=== PATIENT | female | born 1945 | race African-American/Black ===

== ENCOUNTER 2017-08-27 12:23 | Observation (INO) | payer OTHER ==
[2017-08-27] VITALS (10 sets, daily range): BP systolic 129–159; BP diastolic 62–88; PULSE 18–69; RESP 18; TEMP 98.2–98.6; O2SAT 95–97
[~2017-08-27] VITALS: Ht 175.3 cm; Wt 69.0 kg
[2017-08-27] MEDS ORDERED: SODIUM CHLORID 0.9% 500 ML INJ 500 ML IV ONE (13:00)
[2017-08-27] MEDS ORDERED: SODIUM CHLORIDE 0.9% FLUSH 10 ML FLUSH IVF PRN (13:00)
--- NOTE | 2017-08-27 13:07 | PD ---
HPI Chief Complaint: Syncope/Near-Syncope Time Seen by Provider: 12:47 Travel History International Travel<30 days: No Contact w/Intl Traveler<30days: No History of Present Illness HPI 71-year-old -[place] female visiting from [place], presents to the emergency department via EMS status post syncopal episode at [facility]. Patient states she was getting ready to go on a tour, and then she woke up with the ambulance there and people around. Patient denies headache, pain, or injury. She states she still feels somewhat woozy. She denies injury to the upper extremities, chest, abdomen, or lower extremities. She is currently alert and oriented 3. Her daughter is present. Patient states she takes medication for hypertension and congestive heart failure. She states she is not diabetic. No history of seizures. Patient states she was recently hospitalized in July for congestive heart failure and currently takes a diuretic. She denies shortness of breath or chest tightness currently. She states she felt well until this happened. She denies any numbness, tingling, or other focal neurological symptoms. She has no known drug allergies. PFSH Past Medical History Congestive Heart Failure: Yes Hypertension: Yes Social History Alcohol Use: Yes (socially) Tobacco Use: No Substance Use: No Allergies-Medications (Allergen,Severity, Reaction): Coded Allergies: No Known Allergies (Unverified , 08/27/17) Review of Systems Except as stated in HPI: all other systems reviewed are Neg General / Constitutional: No: Fever Eyes: No: Visual changes HENT: Positive: Lightheadedness, No: Headaches Cardiovascular: No: Chest Pain or Discomfort Respiratory: No: Shortness of Breath Gastrointestinal: No: Abdominal Pain Genitourinary: No: Dysuria Musculoskeletal: No: Pain Skin: No Rash Neurologic: No: Weakness Psychiatric: No: Depression Endocrine: No: Polydipsia Hematologic/Lymphatic: No: Easy Bruising Physical Exam Narrative GENERAL: Patient appears somewhat lethargic, but otherwise is alert and oriented 3 and in no obvious distress per SKIN: Warm and dry. Somewhat increased pallor. No diaphoresis. Normal turgor. HEAD: Atraumatic. Normocephalic. Nontender. EYES: Pupils equal and round. No scleral icterus. No injection or drainage. Ocular motions are equal bilaterally. ENT: No nasal bleeding or discharge. Mucous membranes pink and moist. Pharynx is clear. Airways patent NECK: Trachea midline. Supple and nontender. No JVD. CARDIOVASCULAR: Bradycardic rate and regular rhythm. RESPIRATORY: No accessory muscle use. Clear to auscultation. Breath sounds equal bilaterally. GASTROINTESTINAL: Abdomen soft, non-tender, nondistended. Hepatic and splenic margins not palpable. MUSCULOSKELETAL: Extremities without clubbing, cyanosis, or edema. No obvious deformities. NEUROLOGICAL: Awake and alert. No obvious cranial nerve deficits. Motor grossly within normal limits. Five out of 5 muscle strength in the arms and legs. Normal speech. PSYCHIATRIC: Appropriate mood and affect; insight and judgment normal. Data Data Last Documented VS Vital Signs Date Time Temp Pulse Resp B/P (MAP) Pulse Ox O2 Delivery O2 Flow Rate FiO2 08/27/17 14:25 69 157/69 (98) 74 147/62 (90) 08/27/17 12:47 97 08/27/17 12:47 18 Room Air 08/27/17 12:44 98.5 Orders Orders Electrocardiogram (08/27/17 12:52) Complete Blood Count With Diff (08/27/17 12:52) Comprehensive Metabolic Panel (08/27/17 12:52) Magnesium (Mg) (08/27/17 12:52) Ckmb (Isoenzyme) Profile (08/27/17 12:52) Troponin I (08/27/17 12:52) Act Partial Throm Time (Ptt) (08/27/17 12:52) Prothrombin Time / Inr (Pt) (08/27/17 12:52) Urinalysis - C+S If Indicated (08/27/17 12:52) Chest, Single Ap (08/27/17 12:52) Ecg Monitoring (08/27/17 12:52) Iv Access Insert/Monitor (08/27/17 12:52) Oximetry (08/27/17 12:52) Sodium Chloride 0.9% Flush (Ns Flush) (08/27/17 13:00) Sodium Chlorid 0.9% 500 Ml Inj (Ns 500 M (08/27/17 13:00) B-Type Natriuretic Peptide (08/27/17 12:52) Ct Brain W/O Iv Contrast(Rout) (08/27/17 12:52) CKMB (08/27/17 12:50) CKMB% (08/27/17 12:50) Magnesium Sulfate 1 Gm Premix (Magnesium (08/27/17 14:30) Type And Screen (08/27/17 15:08) Red Blood Cells (Rbc) (08/27/17 15:08) Blood Product Administration (08/27/17 15:08) Sodium Chlor 0.9% 250 Ml Inj (Ns 250 Ml (08/27/17 15:15) Labs Laboratory Tests Test 08/27/17 12:50 08/27/17 15:30 White Blood Count 7.4 TH/MM3 Red Blood Count 3.58 MIL/MM3 Hemoglobin 7.9 GM/DL Hematocrit 25.7 % Mean Corpuscular Volume 71.8 FL Mean Corpuscular Hemoglobin 22.2 PG Mean Corpuscular Hemoglobin Concent 30.9 % Red Cell Distribution Width 20.4 % Platelet Count 205 TH/MM3 Mean Platelet Volume 9.9 FL Neutrophils (%) (Auto) 71.2 % Lymphocytes (%) (Auto) 19.1 % Monocytes (%) (Auto) 6.6 % Eosinophils (%) (Auto) 2.5 % Basophils (%) (Auto) 0.6 % Neutrophils # (Auto) 5.3 TH/MM3 Lymphocytes # (Auto) 1.4 TH/MM3 Monocytes # (Auto) 0.5 TH/MM3 Eosinophils # (Auto) 0.2 TH/MM3 Basophils # (Auto) 0.0 TH/MM3 CBC Comment DIFF FINAL Differential Comment Prothrombin Time 10.6 SEC Prothromb Time International Ratio 1.0 RATIO Activated Partial Thromboplast Time 21.6 SEC Blood Urea Nitrogen 40 MG/DL Creatinine 1.52 MG/DL Random Glucose 123 MG/DL Total Protein 7.4 GM/DL Albumin 3.1 GM/DL Calcium Level 8.7 MG/DL Magnesium Level 1.4 MG/DL Alkaline Phosphatase 110 U/L Aspartate Amino Transf (AST/SGOT) 14 U/L Alanine Aminotransferase (ALT/SGPT) 10 U/L Total Bilirubin 0.3 MG/DL Sodium Level 143 MEQ/L Potassium Level 4.0 MEQ/L Chloride Level 114 MEQ/L Carbon Dioxide Level 19.3 MEQ/L Anion Gap 10 MEQ/L Estimat Glomerular Filtration Rate 41 ML/MIN Total Creatine Kinase 131 U/L Creatine Kinase MB 1.2 NG/ML Troponin I LESS THAN 0.02 NG/ML B-Type Natriuretic Peptide 97 PG/ML [facility] Medical Decision Making Medical Screen Exam Complete: Yes Emergency Medical Condition: Yes Differential Diagnosis Syncopal episode. History CHF. History of anemia. Intracranial bleed. CVA. Electrolyte imbalance. Cardiac syndrome. Narrative Course Patient is medically stable at time of exam Labs ordered including CBC, CMP, cardiac panel, coagulation studies, proBNP. EKG is performed showing sinus rhythm at 60 bpm. Chest x-ray is ordered. Orthostatics are ordered. Patient is not orthostatic. Patient is given 500 mL of normal saline bolus. CBC showed anemia with a hemoglobin of 7.9, hematocrit is 25.7, MCV 71.8, MCH 22.2, platelet count is normal at 205 Coagulation studies are normal with an INR 1.0. APTT is 21.6 PT is 10.6 Chemistries remarkable for chloride of 114, carbon dioxide is 19.3, BUN is 40, creatinine is 1.52, T4 is 41, glucose is 123, magnesium is 1.4 first troponin is less than 0.02. BNP is 97 Rectal guaiac shows positive. Patient discussed with Dr. Isaac who recommends admitting the patient for further evaluation and 1 unit of blood. Type and screen and 1 unit of blood ordered for administration. Calls placed to hospitalist for admission. Diagnosis Primary Impression: Syncope and collapse Additional Impressions: Symptomatic anemia Stool guaiac positive Admitting Information Admitting Physician Requests: Observation Condition: Stable Ayden Kramer Aug 27, 2017 13:07
[2017-08-27 13:19] LABS: AUTOMATED NEUTROPHIL # 5.3 TH/MM3 (1.8-7.7); BASOPHIL % 0.6 % (0.0-2.0); EOSINOPHIL # 0.2 TH/MM3 (0-0.4); EOSINOPHIL % 2.5 % (0.0-4.0); HEMATOCRIT 25.7 % (35.0-46.0); HEMOGLOBIN 7.9 GM/DL (11.6-15.3); LYMPH % 19.1 % (9.0-44.0); LYMPHOCYTE # 1.4 TH/MM3 (1.0-4.8); MEAN CELL VOLUME 71.8 FL (80.0-100.0); MEAN CORPUSCULAR HEMOGLOBIN 22.2 PG (27.0-34.0); MEAN CORPUSCULAR HGB CONC 30.9 % (32.0-36.0); MEAN PLATELET VOLUME 9.9 FL (7.0-11.0); MONO % 6.6 % (0.0-8.0); MONOCYTE # 0.5 TH/MM3 (0-0.9); NEUT % 71.2 % (16.0-70.0); PLATELET COUNT 205 TH/MM3 (150-450); RED BLOOD COUNT 3.58 MIL/MM3 (4.00-5.30); RED CELL DISTRIBUTION WIDTH 20.4 % (11.6-17.2); WHITE BLOOD COUNT 7.4 TH/MM3 (4.0-11.0)
--- NOTE | 2017-08-27 13:29 | RADRPT ---
EXAM DATE: 08/27/2017 1:23 PM EDT AGE/SEX: 71 years / Female INDICATIONS: Fainting. CLINICAL DATA: This is the patient's initial encounter. Patient reports that signs and symptoms have been present for 1 day and indicates a pain score of 0/10. MEDICAL/SURGICAL HISTORY: None. None. COMPARISON: No prior exams available for comparison. FINDINGS: A single AP view of the chest demonstrates the lungs to be symmetrically aerated without evidence of mass, infiltrate or effusion. Mild cardiomegaly. The cardiomediastinal contours are unremarkable. O sseous structures are intact. CONCLUSION: No acute cardiopulmonary disease Electronically signed by: Ruperto Brand MD 08/27/2017 1:28 PM EDT
[2017-08-27 13:33] LABS: PROTHROMBIN TIME - PATIENT 10.6 SEC (9.8-11.6)
[2017-08-27 13:36] LABS: ALBUMIN 3.1 GM/DL (3.4-5.0); ALT (GPT) 10 U/L (10-53); AST (GOT) 14 U/L (15-37); BICARBONATE 19.3 MEQ/L (21.0-32.0); BLOOD UREA NITROGEN 40 MG/DL (7-18); CALCIUM 8.7 MG/DL (8.5-10.1); CHLORIDE 114 MEQ/L (98-107); CREATININE 1.52 MG/DL (0.50-1.00); GLOMERULAR FILTRATION RATE 41 ML/MIN (>89); GLUCOSE,RANDOM 123 MG/DL (74-106); MAGNESIUM 1.4 MG/DL (1.5-2.5); SODIUM (NA) 143 MEQ/L (136-145)
[2017-08-27 13:40] LABS: ALKALINE PHOSPHATASE 110 U/L (45-117); TOTAL BILIRUBIN ADULT 0.3 MG/DL (0.2-1.0); TOTAL PROTEIN 7.4 GM/DL (6.4-8.2); TROPONIN I LESS THAN 0.02 NG/ML (0.02-0.05)
--- NOTE | 2017-08-27 14:16 | RADRPT ---
EXAM DATE: 08/27/2017 2:08 PM EDT AGE/SEX: 71 years / Female INDICATIONS: Syncope today. CLINICAL DATA: This is the patient's initial encounter. Patient reports that signs and symptoms have been present for 1 day and indicates a pain score of 0/10. MEDICAL/SURGICAL HISTORY: Hypertension. Congestive heart failure. None. RADIATION DOSE: 56.35 CTDI (mGy) COMPARISON: No prior exams available for comparison. TECHNIQUE: CT of the head without contrast. Using automated exposure control and adjustment of the mA and/or kV according to patient size, radiation dose was kept as low as reasonably achievable to ob tain optimal diagnostic quality images. DICOM format image data is available electronically for revi ew and comparison. FINDINGS: Cerebrum: The ventricles are normal for age. 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 No evidence of midline shift, mass lesion, hemorrhage or acute infarction. No extraaxial fluid collections are seen . Posterior Fossa: The cerebellum and brainstem are intact. The 4th ventricle is midline. The cerebe llopontine angle is unremarkable. Extracranial: The visualized portion of the orbits is intact. Skull: The calvaria is intact. No evidence of skull fracture. CONCLUSION: 1. No acute intracranial abnormality. 2. Remote right-sided infarcts. Electronically signed by: Ruperto Brand MD 08/27/2017 2:14 PM EDT
[2017-08-27] MEDS ORDERED: MAGNESIUM SULFATE 1 GM PREMIX 100 ML IV ONE (14:30)
[2017-08-27] MEDS ORDERED: SODIUM CHLOR 0.9% 250 ML INJ 250 ML IV ONE (15:15)
[2017-08-27] MEDS ORDERED: BISACODYL 10 MG SUPP RECTAL PRN (16:15)
[2017-08-27] MEDS ORDERED: LACTULOSE SYRUP 20 GM/30 ML CUP PO PRN (16:15)
[2017-08-27] MEDS ORDERED: NITROGLYCERIN 0.4 MG SL 25 TABS/BTL SL PRN (16:15)
[2017-08-27] MEDS ORDERED: SODIUM CHLORIDE 0.9% FLUSH 10 ML FLUSH IV FLUSH PRN (16:15)
[2017-08-27] MEDS ORDERED: ACETAMINOPHEN 325 MG TAB PO PRN ×2 (16:15)
[2017-08-27] MEDS ORDERED: NALOXONE HCL 0.4 MG/ML AMP IV PUSH PRN (16:15)
[2017-08-27] MEDS ORDERED: ONDANSETRON HCL 4 MG/2 ML VIAL IVP PRN (16:15)
[2017-08-27] MEDS ORDERED: SENNOSIDES 8.6 MG TAB PO PRN (16:15)
[2017-08-27 16:30] LABS: AMORPHOUS SEDIMENT, URINE MOD; BACTERIA, URINE FEW /hpf; BILIRUBIN, URINE NEG (NEG); BLOOD, URINE SMALL (NEG); GLUCOSE,URINE NEG (NEG); HYALINE CAST, URINE 3 /lpf (RARE); KETONE, URINE NEG (NEG); MUCUS URINE FEW /lpf (OCC); NITRITE,URINE NEG (NEG); SQUAMOUS EPITHELIAL CELL URINE 7 /hpf (0-5); URINE COLOR YELLOW (YELLW/STRAW); URINE LEUKOCYTE ESTERASE LARGE (NEG)
[2017-08-27] MEDS ORDERED: SODIUM CHLOR 0.9% 1000 ML INJ 1,000 ML IV SCH (17:45)
--- NOTE | 2017-08-27 17:47 | HHI.HP ---
HPI Service [facility] Primary Care Physician Unknown Admission Diagnosis Syncope/Symptomatic anemia Diagnoses: Chief Complaint: Syncope Travel History International Travel<30 Days: No Contact w/Intl Traveler <30 Da: No History of Present Illness This is a 71-year-old female who presented to the emergency room by EMS status post syncope. Patient visiting from [place]. She was at [facility] when she felt dizzy and passed out for a short period of time. She was oriented after the episode which was witnessed by her daughter. No seizure activity. Patient denies fever, chills, nausea, vomiting, chest pain, shortness of breath, UTI symptoms and diarrhea. She is not on any new medicine except when she was hospitalized in July for heart failure. She takes 5 different medications which she cannot recall. In the emergency department, she was found to have hemoglobin of 7.9 and guaiac positive stools. She has history of anemia unknown baseline hemoglobin, peptic ulcer disease and hemorrhoids with intermittent rectal bleeding last episode 3 weeks ago. She never had an endoscopy and refuses to undergo at this time. No NSAIDs or aspirin use. She also has acute kidney injury with acidosis and received 500 cc NS in the emergency department. Denies kidney disease. All other systems reviewed negative Review of Systems Except as stated in HPI: all other systems reviewed are Neg Past Family Social History Past Medical History As previously mentioned. Hypertension Past Surgical History Cervical cancer status post surgery and radiation therapy. Small bowel obstruction with gangrene status post surgery Reported Medications Agent unable to recall. RN to verify Allergies: Coded Allergies: No Known Allergies (Unverified , 08/27/17) Family History Denies CVA Social History Occasional alcohol use. Does not smoke Physical Exam Vital Signs Vital Signs Date Time Temp Pulse Resp B/P (MAP) Pulse Ox O2 Delivery O2 Flow Rate FiO2 08/27/17 17:23 142/62 (88) 96 08/27/17 14:25 69 157/69 (98) 74 147/62 (90) 08/27/17 14:24 69 157/69 (98) 08/27/17 12:47 97 08/27/17 12:47 60 18 129/63 (85) 97 Room Air 08/27/17 12:44 98.5 61 18 129/63 (85) Physical Exam GENERAL: This is a well-nourished, well-developed patient, in no apparent distress. Looks dehydrated SKIN: No rashes, ecchymoses or lesions. Cool and dry. HEAD: Atraumatic. Normocephalic. No temporal or scalp tenderness. EYES: Pupils equal round and reactive. Extraocular motions intact. No scleral icterus. No injection or drainage. ENT: Nose without bleeding, purulent drainage or septal hematoma. Throat without erythema, tonsillar hypertrophy or exudate. Uvula midline. Airway patent. NECK: Trachea midline. No JVD or lymphadenopathy. Supple, nontender, no meningeal signs. CARDIOVASCULAR: Regular rate and rhythm without murmurs, gallops, or rubs. RESPIRATORY: Clear to auscultation. Breath sounds equal bilaterally. No wheezes , rales, or rhonchi. GASTROINTESTINAL: Abdomen soft, non-tender, nondistended. No guarding. MUSCULOSKELETAL: Extremities without clubbing, cyanosis, or edema. No joint tenderness, effusion, or edema noted. No calf tenderness. Negative Homans sign bilaterally. NEUROLOGICAL: Awake and alert. Cranial nerves II through XII intact. Motor and sensory grossly within normal limits. Five out of 5 muscle strength in all muscle groups. Normal speech. Laboratory Laboratory Tests Test 08/27/17 12:50 08/27/17 15:30 White Blood Count 7.4 Red Blood Count 3.58 Hemoglobin 7.9 Hematocrit 25.7 Mean Corpuscular Volume 71.8 Mean Corpuscular Hemoglobin 22.2 Mean Corpuscular Hemoglobin Concent 30.9 Red Cell Distribution Width 20.4 Platelet Count 205 Mean Platelet Volume 9.9 Neutrophils (%) (Auto) 71.2 Lymphocytes (%) (Auto) 19.1 Monocytes (%) (Auto) 6.6 Eosinophils (%) (Auto) 2.5 Basophils (%) (Auto) 0.6 Neutrophils # (Auto) 5.3 Lymphocytes # (Auto) 1.4 Monocytes # (Auto) 0.5 Eosinophils # (Auto) 0.2 Basophils # (Auto) 0.0 CBC Comment DIFF FINAL Differential Comment Prothrombin Time 10.6 Prothromb Time International Ratio 1.0 Activated Partial Thromboplast Time 21.6 Blood Urea Nitrogen 40 Creatinine 1.52 Random Glucose 123 Total Protein 7.4 Albumin 3.1 Calcium Level 8.7 Magnesium Level 1.4 Alkaline Phosphatase 110 Aspartate Amino Transf (AST/SGOT) 14 Alanine Aminotransferase (ALT/SGPT) 10 Total Bilirubin 0.3 Sodium Level 143 Potassium Level 4.0 Chloride Level 114 Carbon Dioxide Level 19.3 Anion Gap 10 Estimat Glomerular Filtration Rate 41 Total Creatine Kinase 131 Creatine Kinase MB 1.2 Troponin I LESS THAN 0.02 B-Type Natriuretic Peptide 97 Urine Color YELLOW Urine Turbidity CLOUDY Urine pH 5.0 Urine Specific [place] 1.008 Urine Protein NEG Urine Glucose (UA) NEG Urine Ketones NEG Urine Occult Blood SMALL Urine Nitrite NEG Urine Bilirubin NEG Urine Urobilinogen LESS THAN 2 Urine Leukocyte Esterase LARGE Urine RBC 2 Urine WBC 8 Urine Squamous Epithelial Cells 7 Urine Amorphous Sediment MOD Urine Bacteria FEW Urine Hyaline Casts 3 Urine Mucus FEW Microscopic Urinalysis Comment CULT NOT INDICATED Result Diagram: 08/27/17 1250 08/27/17 1250 Caprini VTE Risk Assessment Caprini VTE Risk Assessment: Mod/High Risk (score >= 2) Caprini Risk Assessment Model Point Value = 1 Point Value = 2 Point Value = 3 Point Value = 5 Age 41-60 Minor surgery BMI > 25 kg/m2 Swollen legs Varicose veins or History of unexplained or recurrent spontaneous Oral contraceptives or hormone replacement Sepsis (< 1 month) Serious lung disease, including pneumonia (< 1 month) Abnormal pulmonary function Acute myocardial infarction Congestive heart failure (< 1 month) History of inflammatory bowel disease Medical patient at bed rest Age 61-74 Arthroscopic surgery Major open surgery (> 45 min) Laparoscopic surgery (> 45 min) Malignancy Confined to bed (> 72 hours) Immobilizing plaster cast Central venous access Age >= 75 History of VTE Family history of VTE Factor V Leiden Prothrombin [id number] Lupus anticoagulant Anticardiolipin antibodies Elevated serum homocysteine Heparin-induced thrombocytopenia Other congenital or acquired thrombophilia Stroke (< 1 month) Elective arthroplasty Hip, pelvis, or leg fracture Acute spinal cord injury (< 1 month) Prophylaxis Regimen Total Risk Factor Score Risk Level Prophylaxis Regimen 0-1 Low Early ambulation 2 Moderate Order ONE of the following: *Sequential Compression Device (SCD) *Heparin 5000 units SQ BID 3-4 Higher Order ONE of the following medications: *Heparin 5000 units SQ TID *Enoxaparin/Lovenox 40 mg SQ daily (WT < 150 kg, CrCl > 30 mL/min) *Enoxaparin/Lovenox 30 mg SQ daily (WT < 150 kg, CrCl > 10-29 mL/min) *Enoxaparin/Lovenox 30 mg SQ BID (WT < 150 kg, CrCl > 30 mL/min) AND/OR *Sequential Compression Device (SCD) 5 or more Highest Order ONE of the following medications: *Heparin 5000 units SQ TID (Preferred with Epidurals) *Enoxaparin/Lovenox 40 mg SQ daily (WT < 150 kg, CrCl > 30 mL/min) *Enoxaparin/Lovenox 30 mg SQ daily (WT < 150 kg, CrCl > 10-29 mL/min) *Enoxaparin/Lovenox 30 mg SQ BID (WT < 150 kg, CrCl > 30 mL/min) AND *Sequential Compression Device (SCD) Assessment and Plan Assessment and Plan This is a 71-year-old female who presented to the emergency room by EMS status post syncope. Patient visiting from [place]. She was [place] [employer] when she felt dizzy and passed out for a short period of time. She was oriented after the episode which was witnessed by her daughter. No seizure activity. Patient denies fever, chills, nausea, vomiting, chest pain, shortness of breath, UTI symptoms and diarrhea. She is not on any new medicine except when she was hospitalized in July for heart failure. She takes 5 different medications which he cannot recall. In the emergency department, she was found to have hemoglobin of 7.9 and guaiac positive stools. Syncope. She is nonfocal. Head CT without acute cardiopulmonary disease. Initial cardiac enzymes unremarkable. EKG tracing interpreted by me with sinus rhythm with no ST elevation. Neurochecks. Acute kidney injury with acidosis likely secondary to dehydration. Denies NSAID use. Received 500 cc NS. Gentle IV hydration for 1 L. Avoid nephrotoxins. Obtain records from PCP Hypomagnesemia. Patient received 1 g IV magnesium. Repeat in the morning Symptomatic anemia secondary to blood loss. History of anemia unknown baseline hemoglobin. She is guaiac positive. History of ulcers and hemorrhoids. No NSAID or aspirin use. Patient agrees to packed RBC transfusion. Repeat CBC in the morning. Patient refusing to undergo endoscopy will cancel GI consult. Start PPI. As previously mentioned obtain records from PCP Multiple medical conditions of hypertension and heart failure. She is compensated at this time. CHF education, I/O and monitor weight. Continue outpatient medications as appropriate when confirmed. RN to verify home meds DVT prophylaxis with SCD and early ambulation. No pharmacological prophylaxis secondary to guaiac positive stool Discussed Condition With Patient Obinna Chavis MD Aug 27, 2017 17:47
[2017-08-27] MEDS ORDERED: ATOR40TA16 PO (17:50)
[2017-08-27] MEDS ORDERED: CARV3.12 PO (17:50)
[2017-08-27] MEDS ORDERED: FURO40TA PO (17:50)
[2017-08-27] MEDS ORDERED: LISI10TA3 PO (17:50)
[2017-08-27] MEDS ORDERED: KLOR10TA PO (17:50)
[2017-08-27] MEDS ORDERED: ISOS30TA3 PO (17:50)
[2017-08-27] MEDS ORDERED: LOSA100T2 PO (17:51)
[2017-08-27] MEDS ORDERED: AMLO10TA2 PO (17:51)
[2017-08-27] MEDS: PANTOPRAZOLE SOD 40 MG DELAYED RELEASE TAB PO SCH (18:31)
[2017-08-27] MEDS: SODIUM CHLORIDE 0.9% FLUSH 10 ML FLUSH IV FLUSH SCH (21:00)
[2017-08-27] MEDS ORDERED: ATORVASTATIN 40 MG TAB PO SCH (21:00)
[2017-08-27 21:11] LABS: TROPONIN I LESS THAN 0.02 NG/ML (0.02-0.05)
[2017-08-27] MEDS: CARVEDILOL 3.125 MG TAB PO SCH (22:35)
[2017-08-27] MEDS: DOCUSATE SODIUM 50 MG/SENNA 8.6 MG TAB PO SCH (22:35)
[2017-08-28 00:03] VITALS: BP 158/78; RESP 18; TEMP 98.6; O2SAT 98
[2017-08-28 01:11] VITALS: BP 156/68; PULSE 66; RESP 18; TEMP 98.2; O2SAT 96
[2017-08-28 01:51] LABS: AUTOMATED NEUTROPHIL # 6.9 TH/MM3 (1.8-7.7); BASOPHIL % 0.2 % (0.0-2.0); EOSINOPHIL # 0.2 TH/MM3 (0-0.4); EOSINOPHIL % 2.2 % (0.0-4.0); HEMATOCRIT 26.2 % (35.0-46.0); HEMOGLOBIN 8.4 GM/DL (11.6-15.3); LYMPHOCYTE # 1.9 TH/MM3 (1.0-4.8); MEAN CELL VOLUME 72.2 FL (80.0-100.0); MEAN CORPUSCULAR HGB CONC 31.8 % (32.0-36.0); MEAN PLATELET VOLUME 9.5 FL (7.0-11.0); MONO % 8.4 % (0.0-8.0); MONOCYTE # 0.8 TH/MM3 (0-0.9); NEUT % 70.2 % (16.0-70.0); PLATELET COUNT 187 TH/MM3 (150-450); RED BLOOD COUNT 3.64 MIL/MM3 (4.00-5.30); RED CELL DISTRIBUTION WIDTH 21.5 % (11.6-17.2); WHITE BLOOD COUNT 9.9 TH/MM3 (4.0-11.0)
[2017-08-28 02:08] LABS: BICARBONATE 23.2 MEQ/L (21.0-32.0); CALCIUM 8.4 MG/DL (8.5-10.1); CREATININE 1.44 MG/DL (0.50-1.00)
[2017-08-28 02:11] LABS: TROPONIN I LESS THAN 0.02 NG/ML (0.02-0.05)
[2017-08-28 03:26] VITALS: BP 155/69; PULSE 63; RESP 18; TEMP 98.1; O2SAT 96
[2017-08-28 07:55] VITALS: PULSE 58
[2017-08-28 08:05] VITALS: BP 147/65; PULSE 62; RESP 16; TEMP 97.6; O2SAT 96
[2017-08-28] MEDS ORDERED: LISINOPRIL 10 MG TAB PO SCH (09:00)
[2017-08-28] MEDS ORDERED: POTASSIUM CHLORIDE 10 MEQ CONTROLLED RELEASE TAB PO SCH (09:00)
[2017-08-28] MEDS ORDERED: FUROSEMIDE 40 MG TAB PO SCH (09:00)
[2017-08-28] MEDS: DOCUSATE SODIUM 50 MG/SENNA 8.6 MG TAB PO SCH (09:00)
--- NOTE | 2017-08-28 09:25 | PD.CONS ---
HPI History of Present Illness This is a 72 year old female was admitted to the hospital on 08/27/2017 for lightheadedness and dizzy sensations with syncopal episode. According to the patient and the records she was here with a friend for her birthday and had gone to the [employer]. She states she has never had an episode like this before. Currently patient denies any nausea or vomiting no dyspepsia or dysphasia. Patient does note new onset of diarrhea loose brown stools for the past 3 or 4 months. Patient denies seeing any blood but has not had any type of evaluation for this diarrhea. She does state that the stools are daily and has had a history of cervical cancer in 1983 with complications of a small bowel obstruction postop surgery. Patient denies any diarrhea or any changes in the color of her stool. She denies any obvious hematemesis or melena and no abdominal pain. She states that she did have a history of gastric ulcers a long time ago. Patient denies any family history of colon cancer and states that she has never had an EGD or colonoscopy. Patient does admit to weekly alcohol usage; bilirubin and LFTs are within normal range. Hemoglobin on admission 7.9 and is currently 8.4 after receiving 2 units of packed RBCs blood transfusion. Patient has normal platelet count at 187. Gastroenterology was called to consult for her symptomatic anemia and positive Hemoccult. Patient now states that she is supposed to check out of her hotel today some time and that she is from the [place] area and plans to return to [place] and follow-up with her physicians there. We discussed the possibility of EGD colonoscopy but currently she is refusing. (Eufemia Shah) [facility] Past Medical History As previously mentioned. Hypertension History of gastric ulcers Past Surgical History Cervical cancer status post surgery and radiation therapy. Small bowel obstruction with gangrene status post surgery No EGD or colonoscopy ever done (Eufemia Shah) Coded Allergies: No Known Allergies (Unverified , 08/27/17) Medications Administered Medications Medications (Trade) Dose Ordered Sig/Swathi Route PRN Reason Start Time Stop Time Status Last Admin Dose Admin Senna/Docusate Sodium (Diana-Colace) 1 tab BID PO 08/27/17 21:00 08/27/17 22:35 Sodium Chloride 1,000 ml @ 42 mls/hr [id number] IV 08/27/17 17:45 08/28/17 17:33 08/27/17 18:31 Pantoprazole Sodium (Protonix) 40 mg DAILY PO 08/27/17 18:00 08/27/17 18:31 Atorvastatin Calcium (Lipitor) 40 mg HS PO 08/27/17 21:00 08/27/17 22:35 Carvedilol (Coreg) 3.125 mg BID PO 08/27/17 21:00 08/27/17 22:35 Family History Denies CVA no family history of colon cancer Social History Occasional weekly alcohol use. Does not smoke (Eufemia Shah) Review of Systems Constitutional: COMPLAINS OF: Dizziness Ears, nose, mouth, throat: COMPLAINS OF: Vertigo Gastrointestinal: COMPLAINS OF: Diarrhea (Eufemia Shah) GI Exam Vitals I&O Vital Signs Date Time Temp Pulse Resp B/P (MAP) Pulse Ox O2 Delivery O2 Flow Rate FiO2 08/28/17 08:05 97.6 62 16 147/65 (92) 96 08/28/17 03:26 98.1 63 18 155/69 (97) 96 08/28/17 01:11 98.2 66 18 156/68 (97) 96 08/28/17 00:03 98.6 18 158/78 98 08/27/17 23:23 98.2 65 18 159/67 (97) 95 08/27/17 22:01 98.4 69 18 154/86 (108) 96 08/27/17 21:48 98.6 18 18 156/88 95 08/27/17 21:39 98.2 18 18 159/76 95 08/27/17 20:02 96 08/27/17 17:23 142/62 (88) 96 08/27/17 14:25 69 157/69 (98) 74 147/62 (90) 08/27/17 14:24 69 157/69 (98) 08/27/17 12:47 97 08/27/17 12:47 60 18 129/63 (85) 97 Room Air 08/27/17 12:44 98.5 61 18 129/63 (85) I/O 08/27/17 08/27/17 08/27/17 08/28/1718 6/24/18 07:00 15:00 23:00 07:00 15:00 23:00 Intake Total 600 ml 400 ml Balance 600 ml 400 ml Intake Oral 200 ml Packed Cells 400 ml Blood Product IV Normal Saline Flush 400 ml Imaging Last Impressions Head CT 08/27/17 1252 Signed Impressions: CONCLUSION: 1. No acute intracranial abnormality. 2. Remote right-sided infarcts. Chest X-Ray 08/27/17 1252 Signed Impressions: CONCLUSION: No acute cardiopulmonary disease Laboratory Test 08/27/17 12:50 08/27/17 15:30 08/27/17 20:11 08/28/17 01:36 White Blood Count 7.4 TH/MM3 9.9 TH/MM3 Red Blood Count 3.58 MIL/MM3 3.64 MIL/MM3 Hemoglobin 7.9 GM/DL 8.4 GM/DL Hematocrit 25.7 % 26.2 % Mean Corpuscular Volume 71.8 FL 72.2 FL Mean Corpuscular Hemoglobin 22.2 PG 23.0 PG Mean Corpuscular Hemoglobin Concent 30.9 % 31.8 % Red Cell Distribution Width 20.4 % 21.5 % Platelet Count 205 TH/MM3 187 TH/MM3 Mean Platelet Volume 9.9 FL 9.5 FL Neutrophils (%) (Auto) 71.2 % 70.2 % Lymphocytes (%) (Auto) 19.1 % 19.0 % Monocytes (%) (Auto) 6.6 % 8.4 % Eosinophils (%) (Auto) 2.5 % 2.2 % Basophils (%) (Auto) 0.6 % 0.2 % Neutrophils # (Auto) 5.3 TH/MM3 6.9 TH/MM3 Lymphocytes # (Auto) 1.4 TH/MM3 1.9 TH/MM3 Monocytes # (Auto) 0.5 TH/MM3 0.8 TH/MM3 Eosinophils # (Auto) 0.2 TH/MM3 0.2 TH/MM3 Basophils # (Auto) 0.0 TH/MM3 0.0 TH/MM3 CBC Comment DIFF FINAL DIFF FINAL Differential Comment Prothrombin Time 10.6 SEC Prothromb Time International Ratio 1.0 RATIO Activated Partial Thromboplast Time 21.6 SEC Blood Urea Nitrogen 40 MG/DL 41 MG/DL Creatinine 1.52 MG/DL 1.44 MG/DL Random Glucose 123 MG/DL 99 MG/DL Total Protein 7.4 GM/DL Albumin 3.1 GM/DL Calcium Level 8.7 MG/DL 8.4 MG/DL Magnesium Level 1.4 MG/DL Alkaline Phosphatase 110 U/L Aspartate Amino Transf (AST/SGOT) 14 U/L Alanine Aminotransferase (ALT/SGPT) 10 U/L Total Bilirubin 0.3 MG/DL Sodium Level 143 MEQ/L 145 MEQ/L Potassium Level 4.0 MEQ/L 3.8 MEQ/L Chloride Level 114 MEQ/L 114 MEQ/L Carbon Dioxide Level 19.3 MEQ/L 23.2 MEQ/L Anion Gap 10 MEQ/L 8 MEQ/L Estimat Glomerular Filtration Rate 41 ML/MIN 43 ML/MIN Total Creatine Kinase 131 U/L 113 U/L 111 U/L Creatine Kinase MB 1.2 NG/ML Troponin I LESS THAN 0.02 NG/ML LESS THAN 0.02 NG/ML LESS THAN 0.02 NG/ML B-Type Natriuretic Peptide 97 PG/ML Urine Color YELLOW Urine Turbidity CLOUDY Urine pH 5.0 Urine Specific [place] 1.008 Urine Protein NEG mg/dL Urine Glucose (UA) NEG mg/dL Urine Ketones NEG mg/dL Urine Occult Blood SMALL Urine Nitrite NEG Urine Bilirubin NEG Urine Urobilinogen LESS THAN 2 mg/dL Urine Leukocyte Esterase LARGE Urine RBC 2 /hpf Urine WBC 8 /hpf Urine Squamous Epithelial Cells 7 /hpf Urine Amorphous Sediment MOD Urine Bacteria FEW /hpf Urine Hyaline Casts 3 /lpf Urine Mucus FEW /lpf Microscopic Urinalysis Comment CULT NOT INDICATED Physical Examination HEENT: normocephalic; atraumatic; no obvious jaundice. NECK: Neck is supple CHEST: Chest is clear to auscultation and percussion. CARDIAC: Regular rate and rhythm, audible systolic murmur left sternal border ABDOMEN: Soft, nondistended, nontender; no hepatosplenomegaly; bowel sounds are present in all four quadrants. EXTREMITIES: No clubbing, cyanosis, or edema. SKIN: Pale mucous membranes SUPERVISOR TAN ROOM: Fair to good historian, answer simple questions (Eufemia Shah) Assessment and Plan Assessment: (1) Symptomatic anemia ICD Codes: D64.9 - Anemia, unspecified Status: Acute (2) Stool guaiac positive ICD Codes: R19.5 - Other fecal abnormalities Status: Acute (3) Syncope and collapse ICD Codes: R55 - Syncope and collapse Status: Acute Plan Symptomatic anemia, patient denies any previous symptoms except for the evening of 08/27/2017 when she had lightheadedness and dizziness and a syncopal episode at the [employer]. Patient received 2 units packed RBCs and is now feeling much better. She does have pale mucous membranes currently denies any nausea or vomiting no dyspepsia or dysphasia. Diarrhea, onset approximately 3-4 months ago. Denies any obvious blood or melena states her stools are brown, daily loose stools anywhere from 2-4. Patient has never had EGD or colonoscopy, and is currently refusing to health when this hospital admission. She is from [place] and states that she will go back to [place] and follow-up with her regular physicians who she already has appointments with. Current hemoglobin 8.4. History of small bowel obstruction status post cervical cancer surgery and radiation therapy 1983. History of gastric ulcers a long time ago unknown date, but denies any current symptoms. No family history of colon cancer Weekly EtOH usage, denies any abdominal pain Plan Diet per attending Consider EGD and colonoscopy, currently patient is refusing and states she plans to leave the hospital today. Stool samples, rule out C. difficile or any type of infection Anti-emetics Protonix Bowel regimen Further recommendations to follow Patient was seen per myself and Dr. Najera, this note was written on her behalf (Eufemia Shah) Physician Comments agree with above (Jenni Najera MD) Eufemia Shah Aug 28, 2017 09:25 Jenni Najera MD Aug 28, 2017 13:58
[2017-08-28] MEDS: PANTOPRAZOLE SOD 40 MG DELAYED RELEASE TAB PO SCH (09:26)
[2017-08-28] MEDS: CARVEDILOL 3.125 MG TAB PO SCH (09:27)
[2017-08-28] MEDS: SODIUM CHLORIDE 0.9% FLUSH 10 ML FLUSH IV FLUSH SCH (09:27)
--- NOTE | 2017-08-28 09:44 | HHI.PR ---
Subjective Remarks Follow up on patient with syncopal episode, anemia s/p transfusion. Patient seen and examined. She denies any medical complaints at this time. She states yesterday she had been inside in the air conditioning and had just gotten up and walked outside when she suddenly became dizzy and passed out. She denies any associated headache, vision changes, numbness/tingling, weakness, chest pain , palpitations, N/V or abdominal pain. She denies any tongue biting or loss of bladder/bowel. She says since she was hospitalized in July with heart failure taking all of her medications makes her feels sick. She continue to decline GI workup for anemia and rectal bleeding. Objective Vitals Vital Signs Date Time Temp Pulse Resp B/P (MAP) Pulse Ox O2 Delivery O2 Flow Rate FiO2 08/28/17 08:05 97.6 62 16 147/65 (92) 96 08/28/17 03:26 98.1 63 18 155/69 (97) 96 08/28/17 01:11 98.2 66 18 156/68 (97) 96 08/28/17 00:03 98.6 18 158/78 98 08/27/17 23:23 98.2 65 18 159/67 (97) 95 08/27/17 22:01 98.4 69 18 154/86 (108) 96 08/27/17 21:48 98.6 18 18 156/88 95 08/27/17 21:39 98.2 18 18 159/76 95 08/27/17 20:02 96 08/27/17 17:23 142/62 (88) 96 08/27/17 14:25 69 157/69 (98) 74 147/62 (90) 08/27/17 14:24 69 157/69 (98) 08/27/17 12:47 97 08/27/17 12:47 60 18 129/63 (85) 97 Room Air 08/27/17 12:44 98.5 61 18 129/63 (85) I/O 08/27/17 08/27/17 08/27/17 08/28/17 08/28/17 08/28/17 07:00 15:00 23:00 07:00 15:00 23:00 Intake Total 600 ml 400 ml Balance 600 ml 400 ml Intake Oral 200 ml Packed Cells 400 ml Blood Product IV Normal Saline Flush 400 ml Result Diagram: 08/28/17 0136 08/28/17 0136 Imaging Last Impressions Head CT 08/27/17 1252 Signed Impressions: CONCLUSION: 1. No acute intracranial abnormality. 2. Remote right-sided infarcts. Chest X-Ray 08/27/17 1252 Signed Impressions: CONCLUSION: No acute cardiopulmonary disease Objective Remarks GENERAL: This is a well-nourished, well-developed AAF patient, in no apparent distress. Awake and alert. SKIN: Warm and dry. No generalized rash. HEAD: Atraumatic. Normocephalic. EYES: Pupils equal round and reactive. Extraocular motions intact. No scleral icterus. No injection or drainage. ENT: Nose without bleeding or purulent drainage. Airway patent. MMM. NECK: Trachea midline. CARDIOVASCULAR: Regular rate and rhythm without murmurs, gallops, or rubs. RESPIRATORY: Nonlabored. Clear to auscultation. Breath sounds equal bilaterally. No wheezes, rales, or rhonchi. GASTROINTESTINAL: Abdomen soft, non-tender, nondistended. No guarding. MUSCULOSKELETAL: Extremities without clubbing, cyanosis, or edema. No calf tenderness. NEUROLOGICAL: Awake and alert. Cranial nerves II through XII intact. Motor and sensory grossly within normal limits. No focal neurologic findings. Normal speech. PSYCHIATRIC: Appropriate mood and affect. Normal judgement and insight. Procedures None A/P Assessment and Plan 71-year-old female who presented to the emergency room by EMS status post syncope. Found to have guaiac positive stools and hemoglobin of 7.9 in the ED. Syncope Head CT without any acute intracranial process EKG NSR, no ST abnormality Trops neg x 3 Suspect multifactorial on multiple antihypertensive medications, symptomatic anemia, dehydration Carotid ultrasound done revealing 50-69% stenosis in the left internal carotid artery -continue neurochecks -Orthostatic BP measurements negative -2D echocardiogram ordered but patient requesting to leave. Patient had echocardiogram done last month in [place] where she resides but no records available for review. 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 She does not want to wait and have echocardiogram done here at our facility and understands that workup for her syncopal episode is incomplete at this time. -fall precautions -continuous cardiac monitoring -PT eval/tx -home with no PT recommended Left carotid artery stenosis -Discussed with patient recommendation for vascular surgery consultation given degree of stenosis and syncopal episode. Patient would like to forego vascular consult here in our facility and follow-up with her physicians in [place]. She understands that her workup is incomplete at this time and as such as increased risk for recurrent syncopal episodes with possible injury, TIA/CVA with residual disability and even . Patient was advised not to drive until she is cleared by her PCP/state assessed properties director back home in [place]. Anemia, microcytic/hypochromic, symptomatic secondary to blood loss Hx of ulcers and rectal bleeding, guaiac + stools in ED Hgb 7.9, improved to 8.4 s/p transfusion -continue to monitor H/H -avoid NSAIDS/ASA -she continues to refuse GI workup -she understands that by refusing she is at increased risk of continued symptomatic anemia and undiagnosed pathology to include cancer and/or large bleed. -continue on PPI DENNIS with acidosis, suspect secondary to dehydration creatinine 1.52, no baseline labs for comparison Cr improved to 1.44 s/p IVF hydration -avoid nephrotoxic agents HTN ?over treated with antihypertensives contributing to syncopal episode HLD -will resume patient on home dose of Coreg, Lisinopril, Imdur and Norvasc. 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
--- NOTE | 2017-08-28 10:37 | RADRPT ---
EXAM DATE: 08/28/2017 10:31 AM EDT AGE/SEX: 72 years / Female INDICATIONS: Syncope. CLINICAL DATA: This is the patient's initial encounter. Patient reports that signs and symptoms have been present for 1 day and indicates a pain score of 0/10. MEDICAL/SURGICAL HISTORY: Hypertension. Congestive heart failure. Uterine cancer. Gangrene in abdomen. Hysterectomy. Surgery for gangrene. COMPARISON: No prior exams available for comparison. VELOCITY PARAMETERS: ICA/CCA Ratio: Right 1.4 , Left 1.3 ICA: Right 106 cm/sec, Left 148 cm/sec CCA: Right 77 cm/sec, Left 112 cm/sec ECA: Right 116 cm/sec, Left 94 cm/sec Vertebral: Right 66 cm/sec antegrade, Left 79 cm/sec antegrade FINDINGS: Right Carotid: Moderate arteriosclerotic plaque is visualized.The waveforms are within normal limits . Left Carotid: Moderate arteriosclerotic plaque is visualized. The waveforms are within normal limits . Other: Bilateral thyroid colloid cysts. CONCLUSION: 1. Right Internal Carotid Artery: No hemodynamic significant stenosis. 2. Left Internal Carotid Artery: 50-69% stenosis Electronically signed by: Ruperto Brand MD 08/28/2017 10:36 AM EDT
[2017-08-28 12:28] VITALS: BP_SYST 148; BP_SYST 160; BP_SYST 167; BP_DIAS 65; BP_DIAS 68; BP_DIAS 76; PULSE 58; RESP 16; TEMP 97.9; O2SAT 97
[2017-08-28] MEDS ORDERED: PANT40TA3 PO (12:55)
--- NOTE | 2017-08-28 12:56 | HHI.DCPOC ---
Discharge Care Plan Diagnosis: (1) Acute kidney injury (2) Dehydration (3) Syncope and collapse (4) Stool guaiac positive (5) Symptomatic anemia (6) Carotid artery stenosis Goals to Promote Your Health * To prevent worsening of your condition and complications * To maintain your health at the optimal level Directions to Meet Your Goals Take your medications as prescribed Follow your dietary instruction Follow activity as directed Keep your appointments as scheduled Take your immunizations and boosters as scheduled If your symptoms worsen call your PCP, if no PCP go to Urgent Care Center or Emergency Room Smoking is Dangerous to Your Health. Avoid second hand smoke Call the 24-hour hour crisis hotline for domestic abuse at Monserrat Moralez Aug 28, 2017 12:56
--- NOTE | 2017-08-28 13:37 | EKG ---
Date Performed: 08/28/2017 Time Performed: 01:09:55 PTAGE: 72 years EKG: Sinus rhythm INCOMPLETE RIGHT BUNDLE BRANCH BLOCK BORDERLINE ECG Since PREVIOUS TRACING , no significant change noted PREVIOUS TRACIN08/27/2017 12.49 DOCTOR: Vitor Carlton Interpretating Date/Time 08/28/2017 13:36:26
--- NOTE | 2017-08-28 13:49 | EKG ---
Date Performed: 08/27/2017 Time Performed: 12:49:04 PTAGE: 71 years EKG: Sinus rhythm NORMAL ECG NO PREVIOUS TRACING DOCTOR: Vitor Carlton Interpretating Date/Time 08/28/2017 13:48:10
== END 2017-08-28 14:08 | disposition home or self-care (01) ==
LOC: NEPD 12:23 → NEDA 16:11 → NEPHCDU 17:47
PROVIDERS: ADMIT Family Medicine; ATTEND Family Medicine
DX: R55 Syncope and collapse (principal); I50.9 Heart failure, unspecified; I11.0 Hypertensive heart disease with heart failure; R42 Dizziness and giddiness; R00.1 Bradycardia, unspecified; D50.0 Iron deficiency anemia secondary to blood loss (chronic); R19.5 Other fecal abnormalities; N17.9 Acute kidney failure, unspecified; E87.2 Acidosis; Z92.3 Personal history of irradiation; Z85.41 Personal history of malignant neoplasm of cervix uteri; E83.42 Hypomagnesemia; K64.9 Unspecified hemorrhoids; R19.7 Diarrhea, unspecified; Z87.11 Personal history of peptic ulcer disease; E86.0 Dehydration; I63.9 Cerebral infarction, unspecified; I65.23 Occlusion and stenosis of bilateral carotid arteries; I45.10 Unspecified right bundle-branch block; K62.5 Hemorrhage of anus and rectum; E78.5 Hyperlipidemia, unspecified
CPT/HCPCS: 36430; 70450; 71045; 80048; 80053; 81001; 82550; 82552; 83735; 83880; 84484; 85025; 85610; 85730; 86850; 86900; 86901; 86920; 87205; 87328; 87329; 87425; 87493; 87506; 93005; 93880; 96361; 96365; 97162; 99285; G0378; G8987; G8988; J3475; J7030; J7040; P9016